=== PATIENT | female | born 1990 | race Caucasian/White ===

== ENCOUNTER 2016-10-30 20:12 | Emergency (ER) | payer OTHER ==
[2016-10-30] MEDS ORDERED: KETOROLAC 30 MG/ML VIAL ONE (21:37)
[2016-10-30] MEDS ORDERED: SODIUM CHLORIDE 0.9% 1,000 ML ONE (21:37)
[2016-10-30] MEDS ORDERED: ONDANSETRON 4 MG VIAL ONE (21:37)
== END 2016-10-30 23:11 | disposition home or self-care (01) ==
LOC: ER 20:12
DX: K52.9 Noninfective gastroenteritis and colitis, unspecified (principal)
CPT/HCPCS: 36415; 74022; 80053; 81001; 83690; 84703; 85025; 87804; 96361; 96374; 96375; 99284; J1885; J2405